=== PATIENT | male | born 1955 | race Caucasian/White ===

== ENCOUNTER 2018-02-06 16:28 | Inpatient (IN) ==
[2018-02-06] MEDS ORDERED: IBUPROFEN 800 MG TABLET PO STA (16:54)
[2018-02-06] MEDS ORDERED: cefTRIAXone 1,000 MG in SODIUM CHLORIDE 0.9% 100 ML IV STA (19:09)
[2018-02-06] MEDS ORDERED: CEFEPIME 2,000 MG in SODIUM CHLORIDE 0.9% 100 ML IV STA ×2 (19:15→19:24)
[2018-02-06] MEDS ORDERED: VANCOMYCIN INJ 1,000 MG in SODIUM CHLORIDE 0.9% 250 ML IV STA (19:16)
[2018-02-06 19:21] LABS: Basophils % 0.4 % (0.0-0.8); Eosinophils % 0.2 % (0.00-10.9); Hematocrit 39.1 VOL% (42.0-52.0); Hemoglobin 12.9 GM/DL (14.0-18.0); Immature Granulocytes % 0.9 %; Immature Granulocytes Absolute 0.08 #; Lymphocytes # 0.8 10*3/uL (1.4-4.0); Lymphocytes % 8.8 % (21.2-54.2); Mean Corpuscular Hemoglobin 31 PG (27-34); Mean Corpuscular Volume 92.9 FL (87-102); Mean Platelet Volume 11.4 FL (9.6-12.0); Monocytes # 1.2 10*3/uL (0.11-0.8); Monocytes % 13.3 % (1.7-12.7); Neutrophils % 76.4 % (38.7-73.9); Platelet Count 139 T/CUMM (130-400); Red Blood Count 4.21 MC/CUMM (3.8-5.5); Red Cell Distribution Width 13.4 % (9.3-17.3); White Blood Count 9.2 T/CUMM (4-12)
[2018-02-06] MEDS ORDERED: CEFEPIME 2,000 MG in SODIUM CHLORIDE 0.9% 100 ML IV ONE (19:30)
[2018-02-06] MEDS ORDERED: CEFEPIME 1,000 MG VIAL ONE (19:30)
[2018-02-06 19:39] LABS: Albumin 3.2 G/DL (3.4-5.0); Bilirubin,Total 0.9 MG/DL (0.2-1.0); Calcium 7.9 MG/DL (8.5-10.1); Osmolality,Calculated 283.3 MOS/KG (273-304); Potassium 3.5 MMOL/L (3.5-5.1); Total Protein 6.5 G/DL (6.4-8.3)
[2018-02-06] MEDS ORDERED: ONDANSETRON 4 MG/2 ML VIAL IV PRN (20:02)
[2018-02-06] MEDS ORDERED: DEXTROSE 50% 25 GM/50 ML VIAL IV PRN ×2 (20:02)
[2018-02-06] MEDS ORDERED: GLUCAGON 1 MG VIAL IM PRN ×2 (20:02)
[2018-02-06] MEDS ORDERED: AZITHROMYCIN INJ 500 MG in SODIUM CHLORIDE 0.9% 250 ML IV SCH (20:30)
[2018-02-06] MEDS ORDERED: TERAZOSIN 5 MG CAPSULE PO SCH (21:00)
[2018-02-06] MEDS ORDERED: METOPROLOL SUCCINATE XL 100 MG TABLET PO SCH (21:00)
[2018-02-07] MEDS: INSULIN REGULAR 100 UNIT/ML SUBCUT SCH ×5 (00:26→21:17)
[2018-02-07] MEDS: AZITHROMYCIN INJ 500 MG in SODIUM CHLORIDE 0.9% 250 ML IV SCH ×2 (00:39→23:29)
[2018-02-07] MEDS: ENOXAPARIN 40 MG/0.4 ML SYRINGE SUBCUT SCH ×2 (00:39→23:29)
[2018-02-07] MEDS: ALBUTEROL/IPRATROPIUM 3 ML NEB RESP TX SCH ×4 (01:43→19:24)
[2018-02-07] MEDS ORDERED: hydrALAZINE 20 MG/1 ML VIAL IV PRN (03:55)
[2018-02-07 08:50] LABS: Basophils % 0.3 % (0.0-0.8); Eosinophils % 0.1 % (0.00-10.9); Hematocrit 38.1 VOL% (42.0-52.0); Hemoglobin 12.9 GM/DL (14.0-18.0); Immature Granulocytes % 1.1 %; Immature Granulocytes Absolute 0.11 #; Lymphocytes # 0.9 10*3/uL (1.4-4.0); Lymphocytes % 9.3 % (21.2-54.2); Mean Corpuscular HGB Conc 33.9 GM/DL (32-36); Mean Corpuscular Hemoglobin 31 PG (27-34); Mean Corpuscular Volume 91.4 FL (87-102); Mean Platelet Volume 10.9 FL (9.6-12.0); Monocytes # 1.4 10*3/uL (0.11-0.8); Monocytes % 13.9 % (1.7-12.7); Neutrophils # 7.4 10*3/uL (1.4-7.4); Neutrophils % 75.3 % (38.7-73.9); Platelet Count 145 T/CUMM (130-400); Red Blood Count 4.17 MC/CUMM (3.8-5.5); Red Cell Distribution Width 13.6 % (9.3-17.3); White Blood Count 9.9 T/CUMM (4-12)
[2018-02-07] MEDS ORDERED: NON-FORMULARY MEDICATION (Potassium [Potassium] 99 MG) PO SCH (09:00)
[2018-02-07] MEDS ORDERED: FOLIC ACID PO SCH (09:00)
[2018-02-07] MEDS ORDERED: NON-FORMULARY MEDICATION (Olmesartan Medoxomil [Benicar] 40 MG) PO SCH (09:00)
[2018-02-07] MEDS ORDERED: MV IRON MIN PO SCH (09:00)
[2018-02-07] MEDS ORDERED: NON-FORMULARY MEDICATION (Cyanocobalamin (Vitamin B-12) [Vitamin B-12] 1,000 MCG) PO SCH (09:00)
[2018-02-07] MEDS ORDERED: ASPIRIN EC 81 MG TABLET PO SCH (09:00)
[2018-02-07] MEDS: MULTIVITAMIN (CENTRUM) TABLET PO SCH (09:10)
[2018-02-07] MEDS: OLMESARTAN 20 MG TABLET PO SCH (09:11)
[2018-02-07] MEDS: POTASSIUM GLUCONATE 500 MG TABLET PO SCH (09:11)
[2018-02-07] MEDS: ASPIRIN EC 81 MG TABLET PO SCH (09:11)
[2018-02-07] MEDS: ACETAMINOPHEN 325 MG TABLET PO PRN (09:12)
[2018-02-07] MEDS: CYANOCOBALAMIN 500 MCG TABLET PO SCH (09:13)
[2018-02-07] MEDS: amLODIPine 5 MG TABLET PO SCH (09:13)
[2018-02-07] MEDS: PANTOPRAZOLE 40 MG TABLET PO SCH (09:14)
[2018-02-07] MEDS: FUROSEMIDE 80 MG TABLET PO SCH (09:15)
[2018-02-07 09:20] LABS: Calcium 8.3 MG/DL (8.5-10.1); Potassium 3.6 MMOL/L (3.5-5.1)
[2018-02-07] MEDS: METOPROLOL SUCCINATE XL 100 MG TABLET PO SCH ×2 (09:26→21:18)
[2018-02-07] MEDS: cefTRIAXone 1,000 MG in SYRINGE 1 EACH IV SCH (21:17)
[2018-02-07] MEDS: TERAZOSIN 5 MG CAPSULE PO SCH (21:18)
[2018-02-08] MEDS: ALBUTEROL/IPRATROPIUM 3 ML NEB RESP TX SCH ×4 (00:07→19:52)
[2018-02-08] MEDS: ACETAMINOPHEN 325 MG TABLET PO PRN (05:59)
[2018-02-08] MEDS: INSULIN REGULAR 100 UNIT/ML SUBCUT SCH ×4 (09:35→21:10)
[2018-02-08] MEDS: METOPROLOL SUCCINATE XL 100 MG TABLET PO SCH ×2 (09:37→21:10)
[2018-02-08] MEDS: AZITHROMYCIN 250 MG TABLET PO SCH (09:37)
[2018-02-08] MEDS: POTASSIUM GLUCONATE 500 MG TABLET PO SCH (09:38)
[2018-02-08] MEDS: amLODIPine 5 MG TABLET PO SCH (09:38)
[2018-02-08] MEDS: FUROSEMIDE 80 MG TABLET PO SCH (09:38)
[2018-02-08] MEDS: PANTOPRAZOLE 40 MG TABLET PO SCH (09:38)
[2018-02-08] MEDS: OLMESARTAN 20 MG TABLET PO SCH (09:38)
[2018-02-08] MEDS: CYANOCOBALAMIN 500 MCG TABLET PO SCH (09:38)
[2018-02-08] MEDS: MULTIVITAMIN (CENTRUM) TABLET PO SCH (09:38)
[2018-02-08] MEDS: ASPIRIN EC 81 MG TABLET PO SCH (09:38)
[2018-02-08] MEDS: ENOXAPARIN 40 MG/0.4 ML SYRINGE SUBCUT SCH (21:10)
[2018-02-08] MEDS: TERAZOSIN 5 MG CAPSULE PO SCH (21:10)
[2018-02-08] MEDS: cefTRIAXone 1,000 MG in SYRINGE 1 EACH IV SCH (21:11)
[2018-02-09] MEDS: ALBUTEROL/IPRATROPIUM 3 ML NEB RESP TX SCH ×4 (00:33→19:17)
[2018-02-09] MEDS: ACETAMINOPHEN 325 MG TABLET PO PRN ×2 (06:45→21:58)
[2018-02-09] MEDS: INSULIN REGULAR 100 UNIT/ML SUBCUT SCH ×4 (09:16→21:59)
[2018-02-09] MEDS: CYANOCOBALAMIN 500 MCG TABLET PO SCH (09:19)
[2018-02-09] MEDS: amLODIPine 5 MG TABLET PO SCH (09:19)
[2018-02-09] MEDS: OLMESARTAN 20 MG TABLET PO SCH (09:19)
[2018-02-09] MEDS: MULTIVITAMIN (CENTRUM) TABLET PO SCH (09:19)
[2018-02-09] MEDS: FUROSEMIDE 80 MG TABLET PO SCH (09:19)
[2018-02-09] MEDS: AZITHROMYCIN 250 MG TABLET PO SCH (09:19)
[2018-02-09] MEDS: POTASSIUM GLUCONATE 500 MG TABLET PO SCH (09:19)
[2018-02-09] MEDS: METOPROLOL SUCCINATE XL 100 MG TABLET PO SCH ×2 (09:19→21:58)
[2018-02-09] MEDS: ASPIRIN EC 81 MG TABLET PO SCH (09:19)
[2018-02-09] MEDS: PANTOPRAZOLE 40 MG TABLET PO SCH (09:19)
[2018-02-09] MEDS ORDERED: SODIUM CHLORIDE 0.65% NASAL SPRAY 45 ML BOTTLE BOTH NARES PRN (11:04)
[2018-02-09] MEDS: TERAZOSIN 5 MG CAPSULE PO SCH (21:58)
[2018-02-09] MEDS: cefTRIAXone 1,000 MG in SYRINGE 1 EACH IV SCH (21:59)
[2018-02-09] MEDS: ENOXAPARIN 40 MG/0.4 ML SYRINGE SUBCUT SCH (23:43)
[2018-02-10] MEDS: ALBUTEROL/IPRATROPIUM 3 ML NEB RESP TX SCH ×2 (00:24→07:33)
[2018-02-10 05:55] LABS: Basophils # 0.1 10*3/uL (0.0-0.2); Eosinophils # 0.2 10*3/uL (0.0-0.87); Eosinophils % 3.1 % (0.00-10.9); Hematocrit 39.5 VOL% (42.0-52.0); Hemoglobin 13.1 GM/DL (14.0-18.0); Lymphocytes # 1.2 10*3/uL (1.4-4.0); Lymphocytes % 17.8 % (21.2-54.2); Mean Corpuscular HGB Conc 33.2 GM/DL (32-36); Mean Corpuscular Hemoglobin 31 PG (27-34); Mean Corpuscular Volume 92.5 FL (87-102); Mean Platelet Volume 11.4 FL (9.6-12.0); Monocytes # 0.7 10*3/uL (0.11-0.8); Monocytes % 10.5 % (1.7-12.7); Neutrophils # 4.1 10*3/uL (1.4-7.4); Neutrophils % 61.6 % (38.7-73.9); Platelet Count 198 T/CUMM (130-400); Red Blood Count 4.27 MC/CUMM (3.8-5.5); White Blood Count 6.7 T/CUMM (4-12)
[2018-02-10 06:18] LABS: Band Neutrophils 5 % (0-10); Eosinophils 3 % (0-10); Lymphocytes 23 % (20-55); Platelet Estimate Normal; Segmented Neutrophils 59 % (50-85); Total Cells Counted 100
[2018-02-10 06:19] LABS: Anisocytosis Slight
[2018-02-10 06:26] LABS: Calcium 9.1 MG/DL (8.5-10.1); Osmolality,Calculated 285.4 MOS/KG (273-304)
[2018-02-10] MEDS: POTASSIUM GLUCONATE 500 MG TABLET PO SCH (08:46)
[2018-02-10] MEDS: PANTOPRAZOLE 40 MG TABLET PO SCH (08:46)
[2018-02-10] MEDS: MULTIVITAMIN (CENTRUM) TABLET PO SCH (08:46)
[2018-02-10] MEDS: ASPIRIN EC 81 MG TABLET PO SCH (08:46)
[2018-02-10] MEDS: amLODIPine 5 MG TABLET PO SCH (08:46)
[2018-02-10] MEDS: FUROSEMIDE 80 MG TABLET PO SCH (08:46)
[2018-02-10] MEDS: CYANOCOBALAMIN 500 MCG TABLET PO SCH (08:46)
[2018-02-10] MEDS: OLMESARTAN 20 MG TABLET PO SCH (08:46)
[2018-02-10] MEDS: METOPROLOL SUCCINATE XL 100 MG TABLET PO SCH (08:46)
[2018-02-10] MEDS: AZITHROMYCIN 250 MG TABLET PO SCH (08:47)
[2018-02-10] MEDS: INSULIN REGULAR 100 UNIT/ML SUBCUT SCH (08:50)
[2018-02-10 12:09] VITALS: BP 156/84
== END 2018-02-10 12:10 | disposition home or self-care (01) | DRG 195 ==
LOC: N.ED 16:28 → N.EDINP 20:02 → SUATTDRO 20:03 → N.EDINP 21:30 → N.5E 21:53 → N.ED 22:16
PROVIDERS: ADMIT Internal Medicine; ATTEND Internal Medicine

== ENCOUNTER 2019-01-06 14:53 | Inpatient (IN) ==
[2019-01-06] MEDS ORDERED: ONDANSETRON 4 MG/2 ML VIAL IV STA (15:17)
[2019-01-06] MEDS ORDERED: ASPIRIN 325 MG TABLET PO STA (15:17)
[2019-01-06 15:50] LABS: Basophils % 0.5 % (0.0-0.8); Eosinophils # 0.1 10*3/uL (0.0-0.87); Eosinophils % 1.1 % (0.00-10.9); Hematocrit 43.1 VOL% (42.0-52.0); Hemoglobin 14.2 GM/DL (14.0-18.0); Immature Granulocytes % 1.1 %; Immature Granulocytes Absolute 0.09 #; Lymphocytes # 2.2 10*3/uL (1.4-4.0); Lymphocytes % 27.5 % (21.2-54.2); Mean Corpuscular HGB Conc 32.9 GM/DL (32-36); Mean Corpuscular Volume 93.5 FL (87-102); Mean Platelet Volume 12.5 FL (9.6-12.0); Monocytes % 12.1 % (1.7-12.7); Neutrophils % 57.7 % (38.7-73.9); Platelet Count 142 T/CUMM (130-400); Red Blood Count 4.61 MC/CUMM (3.8-5.5); Red Cell Distribution Width 13.8 % (9.3-17.3); White Blood Count 8.2 T/CUMM (4-12)
[2019-01-06 15:58] LABS: PT Patient Result 10.7 SECS
[2019-01-06] MEDS ORDERED: PROMETHAZINE 25 MG TABLET PO PRN (16:17)
[2019-01-06] MEDS ORDERED: ACETAMINOPHEN 325 MG TABLET PO PRN (16:17)
[2019-01-06] MEDS ORDERED: LACTULOSE 20 GM/30 ML UDCUP PO PRN (16:17)
[2019-01-06] MEDS ORDERED: MAGNESIUM SULF RIDER 2 GM in PREMIX 1 EACH IV PRN (16:17)
[2019-01-06] MEDS ORDERED: guaiFENesin/DM ER 600-30 MG TABLET PO PRN (16:17)
[2019-01-06] MEDS ORDERED: POTASSIUM CHLORIDE 20 MEQ TABLET PO PRN (16:17)
[2019-01-06] MEDS ORDERED: MAGNESIUM SULF RIDER 4 GM in PREMIX 1 EACH IV PRN (16:17)
[2019-01-06] MEDS ORDERED: ZALEPLON 5 MG CAPSULE PO PRN (16:17)
[2019-01-06] MEDS ORDERED: DOCUSATE SODIUM 100 MG CAPSULE PO PRN (16:17)
[2019-01-06] MEDS ORDERED: ONDANSETRON 4 MG/2 ML VIAL IV PRN (16:17)
[2019-01-06] MEDS ORDERED: AMIODARONE INJ 450 MG in DEXTROSE 5% 241 ML IV SCH (16:30)
[2019-01-06 16:50] LABS: Albumin 3.7 G/DL (3.4-5.0); Bilirubin,Total 0.5 MG/DL (0.2-1.0); Calcium 8.4 MG/DL (8.5-10.1); Osmolality,Calculated 290.4 MOS/KG (273-304); Thyroid Stimulating Hormone 5.35 uIU/ml (0.358-3.74); Total Protein 6.9 G/DL (6.4-8.3)
[2019-01-06] MEDS ORDERED: RIVAROXABAN 20 MG TABLET PO SCH (17:00)
[2019-01-06] MEDS ORDERED: sitaGLIPtin 100 MG TABLET PO SCH (21:00)
[2019-01-06] MEDS ORDERED: PIOGLITAZONE 15 MG TABLET PO SCH (21:00)
[2019-01-06] MEDS: GEMFIBROZIL 600 MG TABLET PO SCH (22:27)
[2019-01-06] MEDS: glyBURIDE 5 MG TABLET PO SCH (22:27)
[2019-01-06] MEDS: METOPROLOL SUCCINATE XL 100 MG TABLET PO SCH (22:28)
[2019-01-06] MEDS: AMIODARONE INJ 450 MG in DEXTROSE 5% 241 ML IV SCH (22:29)
[2019-01-06 22:48] LABS: Apearance,Urine CLEAR (Clear); Bilirubin,Urine Negative (Negative); Blood, Urine Small mg/dL (Negative); Glucose,Urine (UA) Negative (Negative); Hyaline Casts,Urine 1 /LPF (0-3); Ketones,Urine Negative (Negative); Mucus,Urine Occasional /LPF (Occasional); Nitrite,Urine Negative (Negative); Protein,Urine Negative; RBC,Urine 1 /HPF (0-4); Urine Color Yellow (Yellow); Urine Specific Gravity 1.015 (1.001-1.035); Urine Urobilinogen < 2.0 EU/DL (0.2-1.0)
[2019-01-06] MEDS: INSULIN LISPRO 100 UNIT/ML SUBCUT SCH (22:55)
[2019-01-07] MEDS: AMIODARONE INJ 450 MG in DEXTROSE 5% 241 ML IV SCH (01:23)
[2019-01-07 06:00] LABS: Basophils % 0.6 % (0.0-0.8); Eosinophils # 0.1 10*3/uL (0.0-0.87); Eosinophils % 1.7 % (0.00-10.9); Hematocrit 44.6 VOL% (42.0-52.0); Hemoglobin 14.5 GM/DL (14.0-18.0); Immature Granulocytes Absolute 0.14 #; Lymphocytes # 1.8 10*3/uL (1.4-4.0); Lymphocytes % 24.5 % (21.2-54.2); Mean Corpuscular HGB Conc 32.5 GM/DL (32-36); Mean Corpuscular Volume 94.7 FL (87-102); Mean Platelet Volume 12.1 FL (9.6-12.0); Monocytes % 13.7 % (1.7-12.7); Neutrophils % 57.5 % (38.7-73.9); Platelet Count 133 T/CUMM (130-400); Red Blood Count 4.71 MC/CUMM (3.8-5.5); Red Cell Distribution Width 13.8 % (9.3-17.3); White Blood Count 7.1 T/CUMM (4-12)
[2019-01-07 06:20] LABS: Blood Urea Nitrogen 39 MG/DL (7-18); Calcium 8.9 MG/DL (8.5-10.1); Glucose 134 MG/DL (74-106); Osmolality,Calculated 289.4 MOS/KG (273-304)
[2019-01-07 06:25] LABS: Troponin I 0.075 NG/ML (0.00-0.045)
[2019-01-07] MEDS: INSULIN LISPRO 100 UNIT/ML SUBCUT SCH ×2 (08:34→11:14)
[2019-01-07] MEDS ORDERED: FAMOTIDINE 20 MG/2 ML VIAL IV ONE (08:47)
[2019-01-07] MEDS ORDERED: CITRIC ACID/SODIUM CITRATE 30 ML UDCUP PO ONE (08:47)
[2019-01-07] MEDS ORDERED: FUROSEMIDE 40 MG TABLET PO SCH (09:00)
[2019-01-07] MEDS ORDERED: CYANOCOBALAMIN 500 MCG TABLET PO SCH (09:00)
[2019-01-07] MEDS ORDERED: hydroCHLOROthiazide 25 MG TABLET PO SCH (09:00)
[2019-01-07] MEDS ORDERED: ASPIRIN EC 81 MG TABLET PO SCH (09:00)
[2019-01-07] MEDS ORDERED: OLMESARTAN 20 MG TABLET PO SCH (09:00)
[2019-01-07] MEDS ORDERED: TERAZOSIN 10 MG CAPSULE PO SCH (09:00)
[2019-01-07] MEDS ORDERED: POTASSIUM CHLORIDE 10 MEQ TABLET PO SCH (09:00)
[2019-01-07] MEDS ORDERED: PANTOPRAZOLE 40 MG TABLET PO SCH (09:00)
[2019-01-07] MEDS ORDERED: FINASTERIDE 5 MG TABLET PO SCH (09:00)
[2019-01-07] MEDS ORDERED: SODIUM CHLORIDE 0.9% 1,000 ML IV SCH (09:30)
[2019-01-07] MEDS ORDERED: LIDOCAINE 2% 5 ML VIAL ONE (09:58)
[2019-01-07] MEDS ORDERED: PROPOFOL 200 MG/20 ML VIAL IV ONE (09:58)
[2019-01-07 11:31] VITALS: BP 120/73
[2019-01-07] MEDS: METOPROLOL SUCCINATE XL 100 MG TABLET PO SCH (12:06)
[2019-01-07] MEDS: GEMFIBROZIL 600 MG TABLET PO SCH (12:22)
[2019-01-07] MEDS: glyBURIDE 5 MG TABLET PO SCH (12:22)
== END 2019-01-07 15:11 | disposition home or self-care (01) ==
LOC: N.ED 14:53 → N.EDINP 16:17 → N.TELEN 17:06
PROVIDERS: ADMIT Internal Medicine Cardiovascular Disease; ATTEND Internal Medicine Cardiovascular Disease

== ENCOUNTER 2019-04-11 20:19 | Observation (INO) ==
[2019-04-11] MEDS ORDERED: METOPROLOL TARTRATE 5 MG/5 ML VIAL IV STA (21:42)
[2019-04-11 21:52] LABS: Basophils # 0.1 10*3/uL (0.0-0.2); Eosinophils # 0.1 10*3/uL (0.0-0.87); Eosinophils % 1.6 % (0.00-10.9); Hematocrit 44.5 VOL% (42.0-52.0); Hemoglobin 14.4 GM/DL (14.0-18.0); Immature Granulocytes % 1.2 %; Immature Granulocytes Absolute 0.08 #; Lymphocytes # 1.5 10*3/uL (1.4-4.0); Lymphocytes % 22.2 % (21.2-54.2); Mean Corpuscular HGB Conc 32.4 GM/DL (32-36); Mean Corpuscular Volume 94.7 FL (87-102); Mean Platelet Volume 12.1 FL (9.6-12.0); Monocytes % 9.9 % (1.7-12.7); Neutrophils % 64.1 % (38.7-73.9); Platelet Count 140 T/CUMM (130-400); Red Cell Distribution Width 13.5 % (9.3-17.3); White Blood Count 6.7 T/CUMM (4-12)
[2019-04-11] MEDS ORDERED: ALBUTEROL/IPRATROPIUM 3 ML NEB RESP TX STA (21:59)
[2019-04-11] MEDS ORDERED: FUROSEMIDE 40 MG/4 ML VIAL IV STA (21:59)
[2019-04-11 22:09] LABS: INR 1.2; PT Patient Result 12.6 SECS (9.6-12.2); Partial Thromboplastin Time 35.4 SECS (20.8-36.0)
[2019-04-11 22:14] LABS: Alanine Aminotransferase 34 U/L (16-61); Albumin 4.1 G/DL (3.4-5.0); Alkaline Phosphatase 76 U/L (45-117); Aspartate Amino Transferase 17 U/L (0-37); Bilirubin,Total < 0.39 MG/DL (0.2-1.0); Blood Urea Nitrogen 37 MG/DL (7-18); Calcium 8.7 MG/DL (8.5-10.1); Estimated Glom Filtration Rate 67 ML/MIN; Glucose 212 MG/DL (74-106); Osmolality,Calculated 293.4 MOS/KG (273-304); Total Protein 7.3 G/DL (6.4-8.3); Troponin I < 0.015 NG/ML (0.00-0.045)
[2019-04-11 22:18] LABS: Apearance,Urine CLEAR (Clear); Bilirubin,Urine Negative (Negative); Blood, Urine Small mg/dL (Negative); Glucose,Urine (UA) 150 mg/dL (Negative); Ketones,Urine Negative (Negative); Nitrite,Urine Negative (Negative); Protein,Urine Negative; RBC,Urine 1 /HPF (0-4); Urine Color Yellow (Yellow); Urine Specific Gravity 1.019 (1.001-1.035); Urine Urobilinogen < 2.0 EU/DL (0.2-1.0); WBC,Urine <1 /HPF (0-6)
[2019-04-11 22:37] LABS: Barbiturates Screen,Urine Negative (Negative); Benzodiazepines Screen,Urine Negative (Negative); Cannabinoid Screen,Urine Negative (Negative); Opiate Screen,Urine Negative (Negative); Phencyclidine Screen,Urine Negative (Negative)
[2019-04-12] MEDS ORDERED: ACETAMINOPHEN 325 MG TABLET PO PRN (01:53)
[2019-04-12] MEDS ORDERED: DEXTROSE 50% 25 GM/50 ML VIAL IV PRN (01:53)
[2019-04-12] MEDS ORDERED: ONDANSETRON 4 MG/2 ML VIAL IV PRN (01:53)
[2019-04-12] MEDS ORDERED: GLUCAGON 1 MG VIAL IM PRN (01:53)
[2019-04-12 05:15] LABS: Basophils # 0.1 10*3/uL (0.0-0.2); Basophils % 1.1 % (0.0-0.8); Eosinophils # 0.1 10*3/uL (0.0-0.87); Eosinophils % 1.6 % (0.00-10.9); Hematocrit 47.3 VOL% (42.0-52.0); Hemoglobin 15.1 GM/DL (14.0-18.0); Immature Granulocytes % 1.1 %; Immature Granulocytes Absolute 0.07 #; Lymphocytes # 1.8 10*3/uL (1.4-4.0); Lymphocytes % 27.7 % (21.2-54.2); Mean Corpuscular HGB Conc 31.9 GM/DL (32-36); Mean Corpuscular Volume 95.2 FL (87-102); Mean Platelet Volume 12.6 FL (9.6-12.0); Monocytes % 10.5 % (1.7-12.7); Platelet Count 147 T/CUMM (130-400); Red Blood Count 4.97 MC/CUMM (3.8-5.5); Red Cell Distribution Width 13.7 % (9.3-17.3); White Blood Count 6.4 T/CUMM (4-12)
[2019-04-12] MEDS: INSULIN LISPRO 100 UNIT/ML SUBCUT SCH ×2 (05:51→13:01)
[2019-04-12 05:52] LABS: Calcium 8.9 MG/DL (8.5-10.1); Osmolality,Calculated 288.1 MOS/KG (273-304)
[2019-04-12 06:44] LABS: Risk Ratio 5.79; Thyroid Stimulating Hormone 11.6 uIU/ml (0.358-3.74); VLDL CHOLESTEROL 58.6 MG/DL
[2019-04-12] MEDS ORDERED: OLMESARTAN 20 MG TABLET PO SCH (09:00)
[2019-04-12] MEDS ORDERED: AMIODARONE 200 MG TABLET PO SCH (09:00)
[2019-04-12] MEDS ORDERED: INFLUENZA VIRUS VACCINE 0.5 ML SYRINGE IM ONE (09:00)
[2019-04-12] MEDS ORDERED: PANTOPRAZOLE 40 MG TABLET PO SCH (09:00)
[2019-04-12] MEDS ORDERED: METOPROLOL SUCCINATE XL 100 MG TABLET PO SCH (09:00)
[2019-04-12] MEDS ORDERED: PNEUMOCOCCAL VACCINE (23 VALENT) 0.5 ML VIAL IM ONE (09:00)
[2019-04-12] MEDS ORDERED: POTASSIUM CHLORIDE 20 MEQ TABLET PO ONE (09:48)
[2019-04-12] MEDS ORDERED: POTASSIUM CHLORIDE 20 MEQ TABLET PO SCH (10:00)
[2019-04-12 12:22] VITALS: BP 149/87
[2019-04-12] MEDS ORDERED: RIVAROXABAN 20 MG TABLET PO SCH (17:00)
== END 2019-04-12 12:24 | disposition home or self-care (01) ==
LOC: N.EDINP 20:19 → N.ED 20:19 → SUATTDRO 04-12 01:03 → N.TELES 04-12 01:24
PROVIDERS: ADMIT Emergency Medicine; ATTEND Internal Medicine Cardiovascular Disease

== ENCOUNTER 2019-04-14 02:02 | Inpatient (IN) ==
[2019-04-14] MEDS ORDERED: DILTIAZEM 50 MG/10 ML VIAL IV STA (02:32)
[2019-04-14] MEDS ORDERED: DILTIAZEM 25 MG/5 ML VIAL IV ONE (02:44)
[2019-04-14 02:57] LABS: Basophils # 0.1 10*3/uL (0.0-0.2); Basophils % 0.9 % (0.0-0.8); Eosinophils # 0.1 10*3/uL (0.0-0.87); Eosinophils % 1.3 % (0.00-10.9); Hematocrit 46.4 VOL% (42.0-52.0); Hemoglobin 14.8 GM/DL (14.0-18.0); Immature Granulocytes % 0.9 %; Immature Granulocytes Absolute 0.06 #; Lymphocytes # 1.5 10*3/uL (1.4-4.0); Lymphocytes % 24.3 % (21.2-54.2); Mean Corpuscular HGB Conc 31.9 GM/DL (32-36); Mean Corpuscular Volume 95.9 FL (87-102); Mean Platelet Volume 12.2 FL (9.6-12.0); Monocytes % 11.8 % (1.7-12.7); Neutrophils % 60.8 % (38.7-73.9); Platelet Count 131 T/CUMM (130-400); Red Blood Count 4.84 MC/CUMM (3.8-5.5); Red Cell Distribution Width 13.8 % (9.3-17.3); White Blood Count 6.3 T/CUMM (4-12)
[2019-04-14 03:02] LABS: INR 1.2; PT Patient Result 13.4 SECS (9.6-12.2)
[2019-04-14 03:12] LABS: Bilirubin,Total 0.4 MG/DL (0.2-1.0); Osmolality,Calculated 291.1 MOS/KG (273-304); Total Protein 7.4 G/DL (6.4-8.3)
[2019-04-14] MEDS ORDERED: GLUCAGON 1 MG VIAL IM PRN (07:24)
[2019-04-14] MEDS ORDERED: ACETAMINOPHEN 325 MG TABLET PO PRN (07:24)
[2019-04-14] MEDS ORDERED: ONDANSETRON 4 MG/2 ML VIAL IV PRN (07:24)
[2019-04-14] MEDS ORDERED: DOCUSATE SODIUM 100 MG CAPSULE PO PRN (07:24)
[2019-04-14] MEDS ORDERED: NITROGLYCERIN SL 0.4 MG TABLET SL PRN (07:24)
[2019-04-14 08:11] LABS: Thyroid Stimulating Hormone 12.6 uIU/ml (0.358-3.74)
[2019-04-14] MEDS: INSULIN LISPRO 100 UNIT/ML SUBCUT SCH ×4 (10:29→22:26)
[2019-04-14] MEDS ORDERED: ENOXAPARIN 60 MG/0.6 ML SYRINGE ONE ×4 (11:34→16:28)
[2019-04-14] MEDS ORDERED: ENOXAPARIN 30 MG/0.3 ML SYRINGE ONE (11:41)
[2019-04-14] MEDS: ENOXAPARIN 150 MG/ML SYRINGE SUBCUT SCH (12:06)
[2019-04-14] MEDS ORDERED: ASPIRIN 325 MG TABLET PO ONE (12:33)
[2019-04-14] MEDS ORDERED: DEXTROSE 50% 25 GM/50 ML VIAL IV ONE (12:41)
[2019-04-14] MEDS ORDERED: DEXTROSE 50% 25 GM/50 ML VIAL IV PRN ×2 (12:44→13:08)
[2019-04-14] MEDS ORDERED: PROPOFOL 200 MG/20 ML VIAL IV ONE (12:46)
[2019-04-14] MEDS ORDERED: LIDOCAINE 2% 5 ML VIAL ONE (12:47)
[2019-04-14] MEDS: DEXTROSE 50% 25 GM/50 ML VIAL IV PRN (12:52)
[2019-04-14] MEDS ORDERED: ASPIRIN 325 MG TABLET ONE (12:58)
[2019-04-14] MEDS ORDERED: SODIUM CHLORIDE 0.9% 1,000 ML IV SCH (13:00)
[2019-04-14] MEDS ORDERED: MAGNESIUM SULF RIDER 2 GM in PREMIX 1 EACH IV PRN (13:15)
[2019-04-14] MEDS ORDERED: PIOGLITAZONE 15 MG TABLET PO SCH (21:00)
[2019-04-14] MEDS: ASCORBIC ACID 500 MG TABLET PO SCH (22:18)
[2019-04-14] MEDS: glyBURIDE 5 MG TABLET PO SCH (22:18)
[2019-04-14] MEDS: METOPROLOL SUCCINATE XL 100 MG TABLET PO SCH (22:19)
[2019-04-14] MEDS: GEMFIBROZIL 600 MG TABLET PO SCH (22:19)
[2019-04-14] MEDS: sitaGLIPtin 100 MG TABLET PO SCH (22:19)
[2019-04-15] MEDS: ENOXAPARIN 150 MG/ML SYRINGE SUBCUT SCH (00:23)
[2019-04-15 04:25] LABS: Basophils # 0.1 10*3/uL (0.0-0.2); Basophils % 0.9 % (0.0-0.8); Eosinophils # 0.1 10*3/uL (0.0-0.87); Eosinophils % 1.5 % (0.00-10.9); Hematocrit 39.6 VOL% (42.0-52.0); Immature Granulocytes % 0.9 %; Immature Granulocytes Absolute 0.06 #; Lymphocytes # 1.8 10*3/uL (1.4-4.0); Lymphocytes % 26.8 % (21.2-54.2); Mean Corpuscular HGB Conc 31.3 GM/DL (32-36); Mean Corpuscular Volume 96.8 FL (87-102); Mean Platelet Volume 12.7 FL (9.6-12.0); Monocytes % 12.9 % (1.7-12.7); Platelet Count 112 T/CUMM (130-400); Red Blood Count 4.09 MC/CUMM (3.8-5.5); Red Cell Distribution Width 13.9 % (9.3-17.3); White Blood Count 6.7 T/CUMM (4-12)
[2019-04-15 04:29] LABS: Hemoglobin 12.4 GM/DL (14.0-18.0)
[2019-04-15 04:33] LABS: Calcium 8.6 MG/DL (8.5-10.1); Osmolality,Calculated 287.4 MOS/KG (273-304)
[2019-04-15 05:24] LABS: Free T4 (Free Thyroxine) 1.09 NG/DL (0.76-1.46)
[2019-04-15] MEDS ORDERED: diphenhydrAMINE CAP 25 MG CAPSULE PO ONE (06:00)
[2019-04-15] MEDS ORDERED: DIAZEPAM 5 MG TABLET PO ONE (06:00)
[2019-04-15] MEDS: LEVOTHYROXINE 100 MCG TABLET PO SCH (06:12)
[2019-04-15] MEDS: CYANOCOBALAMIN 500 MCG TABLET PO SCH (09:15)
[2019-04-15] MEDS: FINASTERIDE 5 MG TABLET PO SCH (09:15)
[2019-04-15] MEDS: TERAZOSIN 10 MG CAPSULE PO SCH (09:15)
[2019-04-15] MEDS: SPIRONOLACTONE 25 MG TABLET PO SCH (09:15)
[2019-04-15] MEDS: OLMESARTAN 20 MG TABLET PO SCH (09:15)
[2019-04-15] MEDS: ASCORBIC ACID 500 MG TABLET PO SCH ×2 (09:15→20:24)
[2019-04-15] MEDS: ASPIRIN CHEW 81 MG TABLET PO SCH (09:15)
[2019-04-15] MEDS: PANTOPRAZOLE 40 MG TABLET PO SCH (09:15)
[2019-04-15] MEDS: GEMFIBROZIL 600 MG TABLET PO SCH ×2 (09:15→20:24)
[2019-04-15] MEDS: FUROSEMIDE 40 MG TABLET PO SCH (09:15)
[2019-04-15] MEDS: POTASSIUM CHLORIDE 20 MEQ TABLET PO SCH (09:15)
[2019-04-15] MEDS: METOPROLOL SUCCINATE XL 100 MG TABLET PO SCH (09:15)
[2019-04-15] MEDS: glyBURIDE 5 MG TABLET PO SCH ×2 (09:16→20:25)
[2019-04-15] MEDS: INSULIN LISPRO 100 UNIT/ML SUBCUT SCH ×4 (09:16→20:25)
[2019-04-15] MEDS ORDERED: DEXTROSE 50% 25 GM/50 ML VIAL IV ONE (13:32)
[2019-04-15] MEDS: DEXTROSE 50% 25 GM/50 ML VIAL IV PRN (13:37)
[2019-04-15] MEDS ORDERED: HEPARIN/NACL 0.9% 2 UNITS/ML 1,000 ML IV ONE (14:12)
[2019-04-15] MEDS ORDERED: LIDOCAINE 1% 20 ML VIAL ONE (14:12)
[2019-04-15] MEDS ORDERED: DIAZEPAM 5 MG TABLET ONE (15:16)
[2019-04-15] MEDS ORDERED: diphenhydrAMINE CAP 25 MG CAPSULE ONE (15:16)
[2019-04-15] MEDS ORDERED: MIDAZOLAM 2 MG/2 ML VIAL ONE ×3 (16:28→16:54)
[2019-04-15] MEDS ORDERED: fentaNYL 100 MCG/2 ML VIAL ONE ×2 (16:29→16:56)
[2019-04-15] MEDS ORDERED: BIVALIRUDIN 250 MG VIAL IV ONE (16:50)
[2019-04-15] MEDS ORDERED: HEPARIN/NACL 0.9% 2 UNITS/ML 500 ML IV ONE (16:59)
[2019-04-15] MEDS ORDERED: CLOPIDOGREL 300 MG TABLET ONE (17:08)
[2019-04-15] MEDS ORDERED: SODIUM CHLORIDE 0.9% 1,000 ML IV SCH (18:00)
[2019-04-15] MEDS ORDERED: ALUMINUM/MAGNES/SIMETH MAX STR 30 ML UDCUP PO PRN (18:27)
[2019-04-15] MEDS: METOPROLOL TARTRATE 50 MG TABLET PO SCH (20:24)
[2019-04-15] MEDS: sitaGLIPtin 100 MG TABLET PO SCH (20:25)
[2019-04-16] MEDS: LEVOTHYROXINE 100 MCG TABLET PO SCH (05:32)
[2019-04-16 06:13] LABS: Basophils % 0.4 % (0.0-0.8); Eosinophils # 0.1 10*3/uL (0.0-0.87); Eosinophils % 0.7 % (0.00-10.9); Hematocrit 40.7 VOL% (42.0-52.0); Hemoglobin 13.1 GM/DL (14.0-18.0); Immature Granulocytes % 0.7 %; Immature Granulocytes Absolute 0.06 #; Mean Corpuscular HGB Conc 32.2 GM/DL (32-36); Mean Corpuscular Volume 95.3 FL (87-102); Mean Platelet Volume 12.9 FL (9.6-12.0); Monocytes % 8.8 % (1.7-12.7); Neutrophils % 78.4 % (38.7-73.9); Platelet Count 112 T/CUMM (130-400); Red Blood Count 4.27 MC/CUMM (3.8-5.5); Red Cell Distribution Width 13.9 % (9.3-17.3); White Blood Count 8.9 T/CUMM (4-12)
[2019-04-16 06:37] LABS: Calcium 8.6 MG/DL (8.5-10.1); Osmolality,Calculated 282.7 MOS/KG (273-304)
[2019-04-16] MEDS: INSULIN LISPRO 100 UNIT/ML SUBCUT SCH ×2 (07:52→13:40)
[2019-04-16] MEDS: ASCORBIC ACID 500 MG TABLET PO SCH (08:33)
[2019-04-16] MEDS: POTASSIUM CHLORIDE 20 MEQ TABLET PO SCH (08:34)
[2019-04-16] MEDS: ASPIRIN CHEW 81 MG TABLET PO SCH (08:34)
[2019-04-16] MEDS: TERAZOSIN 10 MG CAPSULE PO SCH (08:35)
[2019-04-16] MEDS: OLMESARTAN 20 MG TABLET PO SCH (08:35)
[2019-04-16] MEDS: PANTOPRAZOLE 40 MG TABLET PO SCH (08:35)
[2019-04-16] MEDS: METOPROLOL TARTRATE 50 MG TABLET PO SCH ×3 (08:35→09:37)
[2019-04-16] MEDS: SPIRONOLACTONE 25 MG TABLET PO SCH (08:35)
[2019-04-16] MEDS: CYANOCOBALAMIN 500 MCG TABLET PO SCH (08:35)
[2019-04-16] MEDS: FINASTERIDE 5 MG TABLET PO SCH (08:35)
[2019-04-16] MEDS: FUROSEMIDE 40 MG TABLET PO SCH (08:35)
[2019-04-16] MEDS: glyBURIDE 5 MG TABLET PO SCH (08:35)
[2019-04-16] MEDS ORDERED: APIXABAN 5 MG TABLET PO SCH (09:00)
[2019-04-16] MEDS ORDERED: APIXABAN 2.5 MG TABLET PO SCH (09:00)
[2019-04-16] MEDS ORDERED: CLOPIDOGREL 75 MG TABLET PO SCH (09:00)
[2019-04-16 13:45] VITALS: BP 130/69
[2019-04-16] MEDS ORDERED: ROSUVASTATIN 10 MG TABLET PO SCH (21:00)
== END 2019-04-16 15:18 | disposition home or self-care (01) | DRG 247 ==
LOC: N.EDINP 02:02 → N.ED 02:02 → N.TELEN 06:14 → SUATTDRO 13:32
PROVIDERS: ADMIT Family Medicine; ATTEND Internal Medicine
PROC: CLCCHCL (ICD-10-PCS; 2019-04-15 15:45)

== ENCOUNTER 2020-02-17 18:52 | Observation (INO) ==
[2020-02-17 21:07] LABS: Basophils # 0.1 10*3/uL (0.0-0.2); Basophils % 0.6 % (0.0-0.8); Eosinophils # 0.1 10*3/uL (0.0-0.87); Hematocrit 48.2 VOL% (42.0-52.0); Hemoglobin 15.9 GM/DL (14.0-18.0); Immature Granulocytes Absolute 0.11 #; Lymphocytes # 2.8 10*3/uL (1.4-4.0); Lymphocytes % 23.9 % (21.2-54.2); Mean Corpuscular Volume 93.8 FL (87-102); Mean Platelet Volume 12.3 FL (9.6-12.0); Monocytes % 9.5 % (1.7-12.7); Platelet Count 154 T/CUMM (130-400); Red Blood Count 5.14 MC/CUMM (3.8-5.5); Red Cell Distribution Width 13.2 % (9.3-17.3); White Blood Count 11.5 T/CUMM (4-12)
[2020-02-17 21:22] LABS: Albumin 3.9 G/DL (3.4-5.0); Bilirubin,Total 0.5 MG/DL (0.2-1.0); Calcium 9.2 MG/DL (8.5-10.1); Osmolality,Calculated 279.7 MOS/KG (273-304); Total Protein 7.4 G/DL (6.4-8.3)
[2020-02-17] MEDS ORDERED: DILTIAZEM 50 MG/10 ML VIAL IV STA (21:59)
[2020-02-17 22:40] LABS: PT Patient Result 10.9 SECS (9.8-11.9); Partial Thromboplastin Time 30.9 SECS (23.9-33.8)
[2020-02-18] MEDS ORDERED: MAGNESIUM SULF RIDER 2 GM in PREMIX 1 EACH IV PRN (02:51)
[2020-02-18] MEDS ORDERED: MAGNESIUM SULF RIDER 4 GM in PREMIX 1 EACH IV PRN (02:51)
[2020-02-18] MEDS ORDERED: ONDANSETRON 4 MG/2 ML VIAL IV PRN (02:51)
[2020-02-18] MEDS ORDERED: APIXABAN 2.5 MG TABLET PO SCH (09:00)
[2020-02-18] MEDS ORDERED: AMIODARONE INJ 150 MG in DEXTROSE 5% 100 ML IV ONE (09:07)
[2020-02-18] MEDS ORDERED: AMIODARONE INJ 450 MG in DEXTROSE 5% 241 ML IV SCH (09:30)
[2020-02-18 09:53] LABS: Osmolality,Calculated 283.5 MOS/KG (273-304)
[2020-02-18] MEDS ORDERED: APIXABAN 5 MG TABLET ONE (09:53)
[2020-02-18] MEDS ORDERED: AMIODARONE 450 MG/9 ML VIAL IV ONE (09:54)
[2020-02-18] MEDS ORDERED: ASPIRIN CHEW 81 MG TABLET PO ONE (09:54)
[2020-02-18] MEDS ORDERED: METOPROLOL TARTRATE 50 MG TABLET ONE (09:54)
[2020-02-18] MEDS ORDERED: PANTOPRAZOLE 40 MG TABLET PO ONE (09:54)
[2020-02-18] MEDS: ASCORBIC ACID 500 MG TABLET PO SCH ×2 (10:52→20:53)
[2020-02-18] MEDS: ASPIRIN CHEW 81 MG TABLET PO SCH (10:52)
[2020-02-18] MEDS: PANTOPRAZOLE 40 MG TABLET PO SCH (10:52)
[2020-02-18] MEDS: SPIRONOLACTONE 25 MG TABLET PO SCH (10:52)
[2020-02-18] MEDS: METOPROLOL TARTRATE 50 MG TABLET PO SCH ×2 (10:52→20:52)
[2020-02-18] MEDS ORDERED: DEXTROSE 50% 25 GM/50 ML VIAL IV PRN (11:03)
[2020-02-18] MEDS ORDERED: GLUCAGON 1 MG VIAL IM PRN (11:03)
[2020-02-18] MEDS ORDERED: NITROGLYCERIN SL 0.4 MG TABLET SL PRN (11:05)
[2020-02-18] MEDS ORDERED: INSULIN REGULAR 100 UNIT/ML ONE (13:59)
[2020-02-18] MEDS: INSULIN REGULAR 100 UNIT/ML SUBCUT SCH ×3 (14:00→20:54)
[2020-02-18] MEDS: AMIODARONE INJ 450 MG in DEXTROSE 5% 241 ML IV SCH (19:58)
[2020-02-18] MEDS: APIXABAN 5 MG TABLET PO SCH (20:52)
[2020-02-18] MEDS: sitaGLIPtin 100 MG TABLET PO SCH (20:52)
[2020-02-18] MEDS ORDERED: ROSUVASTATIN 10 MG TABLET PO SCH (21:00)
[2020-02-19] MEDS: AMIODARONE INJ 450 MG in DEXTROSE 5% 241 ML IV SCH (01:28)
[2020-02-19 04:07] LABS: Basophils # 0.1 10*3/uL (0.0-0.2); Basophils % 0.5 % (0.0-0.8); Eosinophils # 0.1 10*3/uL (0.0-0.87); Hematocrit 48.8 VOL% (42.0-52.0); Hemoglobin 16.2 GM/DL (14.0-18.0); Immature Granulocytes % 1.1 %; Immature Granulocytes Absolute 0.12 #; Lymphocytes # 1.8 10*3/uL (1.4-4.0); Lymphocytes % 16.1 % (21.2-54.2); Mean Corpuscular HGB Conc 33.2 GM/DL (32-36); Mean Corpuscular Volume 92.4 FL (87-102); Mean Platelet Volume 12.1 FL (9.6-12.0); Monocytes % 10.1 % (1.7-12.7); Neutrophils % 71.2 % (38.7-73.9); Platelet Count 133 T/CUMM (130-400); Red Blood Count 5.28 MC/CUMM (3.8-5.5); Red Cell Distribution Width 13.2 % (9.3-17.3)
[2020-02-19] MEDS ORDERED: LEVOTHYROXINE 100 MCG TABLET PO SCH (06:30)
[2020-02-19] MEDS ORDERED: glyBURIDE 5 MG TABLET PO SCH (09:00)
[2020-02-19] MEDS: INSULIN REGULAR 100 UNIT/ML SUBCUT SCH ×4 (10:14→23:00)
[2020-02-19] MEDS: SPIRONOLACTONE 25 MG TABLET PO SCH (10:15)
[2020-02-19] MEDS: FUROSEMIDE 40 MG TABLET PO SCH (10:15)
[2020-02-19] MEDS: OLMESARTAN 20 MG TABLET PO SCH (10:15)
[2020-02-19] MEDS: CLOPIDOGREL 75 MG TABLET PO SCH (10:16)
[2020-02-19] MEDS: ASCORBIC ACID 500 MG TABLET PO SCH ×2 (10:16→22:07)
[2020-02-19] MEDS: FINASTERIDE 5 MG TABLET PO SCH (10:16)
[2020-02-19] MEDS: METOPROLOL TARTRATE 50 MG TABLET PO SCH ×2 (10:16→22:07)
[2020-02-19] MEDS: POTASSIUM CHLORIDE 20 MEQ TABLET PO SCH (10:16)
[2020-02-19] MEDS: APIXABAN 5 MG TABLET PO SCH ×2 (10:16→22:07)
[2020-02-19] MEDS: PANTOPRAZOLE 40 MG TABLET PO SCH ×2 (10:17)
[2020-02-19] MEDS: ASPIRIN CHEW 81 MG TABLET PO SCH (10:17)
[2020-02-19] MEDS: CYANOCOBALAMIN 500 MCG TABLET PO SCH (10:17)
[2020-02-19] MEDS: TERAZOSIN 10 MG CAPSULE PO SCH (10:17)
[2020-02-19] MEDS: DRONEDARONE 400 MG TABLET PO SCH (17:40)
[2020-02-19] MEDS ORDERED: NON-FORMULARY MEDICATION (Icosapent Ethyl [Vascepa] 2 GM) PO SCH (21:00)
[2020-02-19] MEDS ORDERED: AMIODARONE 200 MG TABLET PO SCH (21:00)
[2020-02-19] MEDS ORDERED: SIMVASTATIN 20 MG TABLET PO SCH (21:00)
[2020-02-19] MEDS ORDERED: ROSUVASTATIN 20 MG TABLET PO SCH (21:00)
[2020-02-19] MEDS: sitaGLIPtin 100 MG TABLET PO SCH (22:06)
[2020-02-20 04:18] LABS: Basophils # 0.1 10*3/uL (0.0-0.2); Basophils % 0.7 % (0.0-0.8); Eosinophils # 0.1 10*3/uL (0.0-0.87); Eosinophils % 1.2 % (0.00-10.9); Hematocrit 43.3 VOL% (42.0-52.0); Hemoglobin 14.4 GM/DL (14.0-18.0); Immature Granulocytes % 1.2 %; Immature Granulocytes Absolute 0.13 #; Lymphocytes # 1.5 10*3/uL (1.4-4.0); Lymphocytes % 14.4 % (21.2-54.2); Mean Corpuscular HGB Conc 33.3 GM/DL (32-36); Mean Corpuscular Volume 93.9 FL (87-102); Mean Platelet Volume 11.2 FL (9.6-12.0); Neutrophils % 71.5 % (38.7-73.9); Platelet Count 119 T/CUMM (130-400); Red Blood Count 4.61 MC/CUMM (3.8-5.5); Red Cell Distribution Width 13.2 % (9.3-17.3); White Blood Count 10.6 T/CUMM (4-12)
[2020-02-20 04:35] LABS: Calcium 8.4 MG/DL (8.5-10.1); Osmolality,Calculated 284.5 MOS/KG (273-304)
[2020-02-20 04:37] LABS: Platelet Estimate Decreased
[2020-02-20] MEDS ORDERED: LEVOTHYROXINE 50 MCG TABLET PO SCH (06:30)
[2020-02-20] MEDS ORDERED: glipiZIDE 5 MG TABLET PO SCH (07:30)
[2020-02-20 08:03] VITALS: BP 163/97
[2020-02-20] MEDS ORDERED: glipiZIDE 10 MG TABLET PO SCH (09:00)
[2020-02-20] MEDS ORDERED: SPIRONOLACTONE 25 MG TABLET PO SCH ×2 (09:00)
[2020-02-20] MEDS: ASPIRIN CHEW 81 MG TABLET PO SCH (09:30)
[2020-02-20] MEDS: DRONEDARONE 400 MG TABLET PO SCH (09:30)
[2020-02-20] MEDS: TERAZOSIN 10 MG CAPSULE PO SCH (09:30)
[2020-02-20] MEDS: METOPROLOL TARTRATE 50 MG TABLET PO SCH ×2 (09:30→09:36)
[2020-02-20] MEDS: PANTOPRAZOLE 40 MG TABLET PO SCH (09:31)
[2020-02-20] MEDS: APIXABAN 5 MG TABLET PO SCH (09:31)
[2020-02-20] MEDS: CYANOCOBALAMIN 500 MCG TABLET PO SCH (09:31)
[2020-02-20] MEDS: FUROSEMIDE 40 MG TABLET PO SCH (09:31)
[2020-02-20] MEDS: POTASSIUM CHLORIDE 20 MEQ TABLET PO SCH (09:31)
[2020-02-20] MEDS: OLMESARTAN 20 MG TABLET PO SCH (09:31)
[2020-02-20] MEDS: ASCORBIC ACID 500 MG TABLET PO SCH (09:31)
[2020-02-20] MEDS: CLOPIDOGREL 75 MG TABLET PO SCH (09:32)
[2020-02-20] MEDS: INSULIN REGULAR 100 UNIT/ML SUBCUT SCH (09:32)
[2020-02-20] MEDS: FINASTERIDE 5 MG TABLET PO SCH (09:32)
== END 2020-02-20 11:08 | disposition home or self-care (01) ==
LOC: N.EDINP 18:52 → N.ED 18:52 → N.TELEN 02-18 13:39
PROVIDERS: ADMIT Internal Medicine Cardiovascular Disease; ATTEND Internal Medicine Cardiovascular Disease

== ENCOUNTER 2020-04-14 00:13 | Observation (INO) ==
[2020-04-14 01:14] LABS: Basophils # 0.1 10*3/uL (0.0-0.2); Basophils % 0.8 % (0.0-0.8); Eosinophils # 0.1 10*3/uL (0.0-0.87); Hematocrit 46.6 VOL% (42.0-52.0); Immature Granulocytes Absolute 0.12 #; Lymphocytes # 3.1 10*3/uL (1.4-4.0); Lymphocytes % 24.6 % (21.2-54.2); Mean Corpuscular HGB Conc 34.3 GM/DL (32-36); Mean Corpuscular Volume 92.1 FL (87-102); Mean Platelet Volume 11.9 FL (9.6-12.0); Monocytes % 9.6 % (1.7-12.7); Platelet Count 136 T/CUMM (130-400); Red Blood Count 5.06 MC/CUMM (3.8-5.5); Red Cell Distribution Width 13.3 % (9.3-17.3); White Blood Count 12.5 T/CUMM (4-12)
[2020-04-14 01:34] LABS: Albumin 3.8 G/DL (3.4-5.0); Bilirubin,Total 0.5 MG/DL (0.2-1.0); Calcium 8.5 MG/DL (8.5-10.1); Osmolality,Calculated 290.7 MOS/KG (273-304); Total Protein 7.2 G/DL (6.4-8.3)
[2020-04-14 01:41] LABS: Thyroid Stimulating Hormone 3.77 uIU/ml (0.358-3.74)
[2020-04-14] MEDS ORDERED: SODIUM CHLORIDE 0.9% 1,000 ML IV STA (01:41)
[2020-04-14] MEDS ORDERED: DIGOXIN 0.5 MG/2 ML AMP IV STA (01:42)
[2020-04-14 01:46] LABS: PT Patient Result 11.1 SECS (9.8-11.9)
[2020-04-14] MEDS ORDERED: ACETAMINOPHEN 325 MG TABLET PO PRN (02:01)
[2020-04-14] MEDS ORDERED: GLUCAGON 1 MG VIAL IM PRN (02:01)
[2020-04-14] MEDS ORDERED: ONDANSETRON 4 MG/2 ML VIAL IV PRN (02:01)
[2020-04-14] MEDS ORDERED: DEXTROSE 50% 25 GM/50 ML VIAL IV PRN (02:01)
[2020-04-14] MEDS ORDERED: DEXTROSE 50% 25 GM/50 ML SYRINGE IV PRN (02:17)
[2020-04-14] MEDS: INSULIN REGULAR 100 UNIT/ML SUBCUT SCH ×3 (07:57→17:04)
[2020-04-14] MEDS ORDERED: PANTOPRAZOLE 40 MG TABLET PO SCH (09:00)
[2020-04-14 09:13] LABS: Basophils # 0.1 10*3/uL (0.0-0.2); Basophils % 0.6 % (0.0-0.8); Eosinophils # 0.1 10*3/uL (0.0-0.87); Eosinophils % 0.9 % (0.00-10.9); Hematocrit 44.6 VOL% (42.0-52.0); Hemoglobin 15.1 GM/DL (14.0-18.0); Immature Granulocytes % 0.7 %; Immature Granulocytes Absolute 0.07 #; Lymphocytes # 2.8 10*3/uL (1.4-4.0); Mean Corpuscular HGB Conc 33.9 GM/DL (32-36); Mean Corpuscular Volume 91.4 FL (87-102); Mean Platelet Volume 11.5 FL (9.6-12.0); Monocytes % 8.9 % (1.7-12.7); Neutrophils % 61.9 % (38.7-73.9); Platelet Count 116 T/CUMM (130-400); Red Blood Count 4.88 MC/CUMM (3.8-5.5); Red Cell Distribution Width 13.3 % (9.3-17.3); White Blood Count 10.3 T/CUMM (4-12)
[2020-04-14 09:34] LABS: Calcium 8.3 MG/DL (8.5-10.1); Osmolality,Calculated 280.8 MOS/KG (273-304)
[2020-04-14 09:53] LABS: Platelet Estimate Decreased
[2020-04-14] MEDS ORDERED: NITROGLYCERIN SL 0.4 MG TABLET SL PRN (11:32)
[2020-04-14] MEDS ORDERED: busPIRone 5 MG TABLET PO PRN (11:32)
[2020-04-14 16:42] VITALS: BP 138/76
[2020-04-14] MEDS ORDERED: DRONEDARONE 400 MG TABLET PO SCH (17:00)
[2020-04-14] MEDS ORDERED: ASCORBIC ACID 500 MG TABLET PO SCH (21:00)
[2020-04-14] MEDS ORDERED: APIXABAN 5 MG TABLET PO SCH (21:00)
[2020-04-15] MEDS ORDERED: LEVOTHYROXINE 75 MCG TABLET PO SCH (07:00)
[2020-04-15] MEDS ORDERED: glipiZIDE 5 MG TABLET PO SCH (07:30)
[2020-04-15] MEDS ORDERED: TERAZOSIN 10 MG CAPSULE PO SCH (09:00)
[2020-04-15] MEDS ORDERED: sitaGLIPtin 100 MG TABLET PO SCH (09:00)
[2020-04-15] MEDS ORDERED: METOPROLOL SUCCINATE XL 100 MG TABLET PO SCH (09:00)
[2020-04-15] MEDS ORDERED: OLMESARTAN 20 MG TABLET PO SCH (09:00)
[2020-04-15] MEDS ORDERED: SPIRONOLACTONE 25 MG TABLET PO SCH (09:00)
[2020-04-15] MEDS ORDERED: SIMVASTATIN 20 MG TABLET PO SCH (09:00)
[2020-04-15] MEDS ORDERED: FINASTERIDE 5 MG TABLET PO SCH (09:00)
== END 2020-04-14 19:31 | disposition hospice, home (50) ==
LOC: N.ED 00:13 → N.EDINP 02:01 → INTOOBSV 02:01 → N.TELEN 02:51
PROVIDERS: ADMIT Family Medicine; ATTEND Family Medicine

== ENCOUNTER 2021-01-01 05:52 | Observation (INO) ==
[2021-01-01 06:19] LABS: Basophils % 0.3 % (0.0-0.8); Eosinophils # 0.1 10*3/uL (0.0-0.87); Eosinophils % 0.9 % (0.00-10.9); Hematocrit 45.2 VOL% (42.0-52.0); Hemoglobin 14.8 GM/DL (14.0-18.0); Immature Granulocytes Absolute 0.07 #; Lymphocytes # 1.8 10*3/uL (1.4-4.0); Mean Corpuscular HGB Conc 32.7 GM/DL (32-36); Mean Corpuscular Volume 90.9 FL (87-102); Mean Platelet Volume 11.7 FL (9.6-12.0); Neutrophils % 53.8 % (38.7-73.9); Platelet Count 122 T/CUMM (130-400); Red Blood Count 4.97 MC/CUMM (3.8-5.5); Red Cell Distribution Width 13.8 % (9.3-17.3); White Blood Count 6.7 T/CUMM (4-12)
[2021-01-01] MEDS ORDERED: DILTIAZEM 50 MG/10 ML VIAL IV STA (06:24)
[2021-01-01 06:32] LABS: PT Patient Result 11.4 SECS (10.5-12.0); Partial Thromboplastin Time 32.7 SECS (23.9-33.8)
[2021-01-01 06:45] LABS: Lymphocytes 19 % (20-55); Platelet Estimate Normal; Segmented Neutrophils 66 % (50-85); Total Cells Counted 100
[2021-01-01] MEDS: DILTIAZEM INJ 100 MG in SODIUM CHLORIDE 0.9% 100 ML IV SCH ×2 (06:45→19:00)
[2021-01-01 06:50] LABS: Albumin 3.3 G/DL (3.4-5.0); Bilirubin,Total 0.5 MG/DL (0.20-1.00); Calcium 8.2 MG/DL (8.5-10.1); Osmolality,Calculated 291.8 MOS/KG (273-304); Potassium 3.8 MMOL/L (3.5-5.1); Total Protein 6.6 G/DL (6.4-8.2)
[2021-01-01] MEDS ORDERED: GLUCAGON 1 MG VIAL IM PRN ×2 (09:03→13:02)
[2021-01-01] MEDS ORDERED: ACETAMINOPHEN 325 MG TABLET PO PRN (09:03)
[2021-01-01] MEDS ORDERED: ONDANSETRON 4 MG/2 ML VIAL IV PRN (09:03)
[2021-01-01] MEDS ORDERED: DEXTROSE 50% 25 GM/50 ML VIAL IV PRN ×2 (09:03→13:02)
[2021-01-01] MEDS ORDERED: MAGNESIUM SULF RIDER 2 GM/50 ML PREMIX IV ONE (09:08)
[2021-01-01] MEDS: SODIUM CHLORIDE 0.9% 1,000 ML IV SCH ×2 (09:49→18:59)
[2021-01-01] MEDS ORDERED: busPIRone 10 MG TABLET PO PRN (11:27)
[2021-01-01] MEDS: NICOTINE 14 MG/24 HR PATCH TRANSDERM SCH (12:18)
[2021-01-01] MEDS: INSULIN LISPRO 100 UNIT/ML SUBCUT SCH ×3 (12:18→21:30)
[2021-01-01] MEDS ORDERED: DRONEDARONE 400 MG TABLET PO SCH (17:00)
[2021-01-01] MEDS ORDERED: SIMVASTATIN 20 MG TABLET PO SCH (21:00)
[2021-01-01] MEDS: METOPROLOL SUCCINATE XL 100 MG TABLET PO SCH (21:30)
[2021-01-01] MEDS: TERAZOSIN 10 MG CAPSULE PO SCH (21:30)
[2021-01-01] MEDS: GABAPENTIN 100 MG CAPSULE PO SCH (21:30)
[2021-01-01] MEDS: APIXABAN 5 MG TABLET PO SCH (21:30)
[2021-01-02] MEDS: SODIUM CHLORIDE 0.9% 1,000 ML IV SCH ×4 (04:00→10:06)
[2021-01-02] MEDS: LEVOTHYROXINE 75 MCG TABLET PO SCH (05:50)
[2021-01-02 06:25] LABS: Basophils % 0.6 % (0.0-0.8); Eosinophils # 0.2 10*3/uL (0.0-0.87); Eosinophils % 2.6 % (0.00-10.9); Hematocrit 41.1 VOL% (42.0-52.0); Hemoglobin 13.6 GM/DL (14.0-18.0); Immature Granulocytes % 1.2 %; Immature Granulocytes Absolute 0.08 #; Lymphocytes # 1.8 10*3/uL (1.4-4.0); Lymphocytes % 27.6 % (21.2-54.2); Mean Corpuscular HGB Conc 33.1 GM/DL (32-36); Mean Corpuscular Volume 90.9 FL (87-102); Mean Platelet Volume 11.9 FL (9.6-12.0); Monocytes % 14.9 % (1.7-12.7); Neutrophils % 53.1 % (38.7-73.9); Platelet Count 102 T/CUMM (130-400); Red Blood Count 4.52 MC/CUMM (3.8-5.5); Red Cell Distribution Width 13.6 % (9.3-17.3); White Blood Count 6.4 T/CUMM (4-12)
[2021-01-02 06:36] LABS: Calcium 7.7 MG/DL (8.5-10.1); Osmolality,Calculated 290.3 MOS/KG (273-304)
[2021-01-02 06:45] LABS: Hypochromasia Slight; Microcytosis Slight; Platelet Estimate Decreased
[2021-01-02] MEDS ORDERED: METOPROLOL SUCCINATE XL 50 MG TABLET PO SCH (09:00)
[2021-01-02] MEDS: NICOTINE 14 MG/24 HR PATCH TRANSDERM SCH (09:17)
[2021-01-02] MEDS: INSULIN LISPRO 100 UNIT/ML SUBCUT SCH ×4 (09:18→21:07)
[2021-01-02] MEDS: ESCITALOPRAM 10 MG TABLET PO SCH (09:19)
[2021-01-02] MEDS: APIXABAN 5 MG TABLET PO SCH ×2 (09:19→21:06)
[2021-01-02] MEDS: METOPROLOL SUCCINATE XL 100 MG TABLET PO SCH ×2 (09:19→21:07)
[2021-01-02] MEDS: GABAPENTIN 100 MG CAPSULE PO SCH ×2 (09:19→21:06)
[2021-01-02] MEDS: PANTOPRAZOLE 40 MG TABLET PO SCH (09:19)
[2021-01-02] MEDS: OLMESARTAN 20 MG TABLET PO SCH (09:19)
[2021-01-02] MEDS: SPIRONOLACTONE 25 MG TABLET PO SCH (09:21)
[2021-01-02] MEDS: CYANOCOBALAMIN 500 MCG TABLET PO SCH (09:22)
[2021-01-02] MEDS: DILTIAZEM 60 MG TABLET PO SCH ×3 (12:47→21:07)
[2021-01-02] MEDS: TERAZOSIN 10 MG CAPSULE PO SCH (21:06)
[2021-01-02] MEDS: ROSUVASTATIN 20 MG TABLET PO SCH (21:07)
[2021-01-03 05:55] LABS: Basophils # 0.1 10*3/uL (0.0-0.2); Basophils % 0.9 % (0.0-0.8); Eosinophils # 0.2 10*3/uL (0.0-0.87); Eosinophils % 2.4 % (0.00-10.9); Hematocrit 41.6 VOL% (42.0-52.0); Hemoglobin 13.7 GM/DL (14.0-18.0); Immature Granulocytes % 1.6 %; Immature Granulocytes Absolute 0.11 #; Lymphocytes # 1.8 10*3/uL (1.4-4.0); Lymphocytes % 25.3 % (21.2-54.2); Mean Corpuscular HGB Conc 32.9 GM/DL (32-36); Mean Corpuscular Volume 91.4 FL (87-102); Mean Platelet Volume 12.1 FL (9.6-12.0); Monocytes % 11.7 % (1.7-12.7); Neutrophils % 58.1 % (38.7-73.9); Platelet Count 110 T/CUMM (130-400); Red Blood Count 4.55 MC/CUMM (3.8-5.5); Red Cell Distribution Width 13.3 % (9.3-17.3)
[2021-01-03] MEDS: LEVOTHYROXINE 75 MCG TABLET PO SCH (06:32)
[2021-01-03 06:40] LABS: Calcium 7.9 MG/DL (8.5-10.1); Osmolality,Calculated 286.3 MOS/KG (273-304); Potassium 3.9 MMOL/L (3.5-5.1)
[2021-01-03] MEDS: DILTIAZEM 60 MG TABLET PO SCH ×4 (08:34→21:15)
[2021-01-03] MEDS: OLMESARTAN 20 MG TABLET PO SCH (08:34)
[2021-01-03] MEDS: SODIUM CHLORIDE 0.9% 1,000 ML IV SCH ×2 (08:34→21:30)
[2021-01-03] MEDS: GABAPENTIN 100 MG CAPSULE PO SCH ×2 (08:35→21:44)
[2021-01-03] MEDS: SPIRONOLACTONE 25 MG TABLET PO SCH (08:35)
[2021-01-03] MEDS: METOPROLOL SUCCINATE XL 100 MG TABLET PO SCH ×2 (08:35→22:55)
[2021-01-03] MEDS: ESCITALOPRAM 10 MG TABLET PO SCH (08:36)
[2021-01-03] MEDS: APIXABAN 5 MG TABLET PO SCH ×2 (08:37→21:45)
[2021-01-03] MEDS: PANTOPRAZOLE 40 MG TABLET PO SCH (08:37)
[2021-01-03] MEDS: INSULIN LISPRO 100 UNIT/ML SUBCUT SCH ×4 (08:38→21:45)
[2021-01-03] MEDS ORDERED: FUROSEMIDE 20 MG TABLET PO SCH (09:00)
[2021-01-03] MEDS ORDERED: POTASSIUM CHLORIDE 20 MEQ TABLET PO ONE (09:32)
[2021-01-03] MEDS ORDERED: MAGNESIUM SULF RIDER 2 GM/50 ML PREMIX IV ONE (09:32)
[2021-01-03] MEDS: NICOTINE 14 MG/24 HR PATCH TRANSDERM SCH (09:55)
[2021-01-03] MEDS: ASCORBIC ACID 500 MG TABLET PO SCH ×2 (10:05→21:45)
[2021-01-03] MEDS: CYANOCOBALAMIN 500 MCG TABLET PO SCH ×2 (10:05→10:28)
[2021-01-03] MEDS ORDERED: LIDOCAINE 1%/EPI INJ 20 ML VIAL ONE (13:03)
[2021-01-03] MEDS ORDERED: TISSUE ADHESIVE 1 EACH APPLICATOR TOP ONE ×2 (13:03→14:31)
[2021-01-03] MEDS ORDERED: LIDOCAINE 2% 5 ML VIAL ONE (13:11)
[2021-01-03] MEDS ORDERED: propofoL 200 MG/20 ML VIAL IV ONE (13:11)
[2021-01-03 13:46] LABS: Calcium 8.2 MG/DL (8.5-10.1); Osmolality,Calculated 277.7 MOS/KG (273-304); Potassium 4.1 MMOL/L (3.5-5.1)
[2021-01-03] MEDS ORDERED: LIDOCAINE 1%/EPI INJ 20 ML VIAL INFILTRAT ONE (14:30)
[2021-01-03] MEDS: TERAZOSIN 10 MG CAPSULE PO SCH (21:44)
[2021-01-03] MEDS: ROSUVASTATIN 20 MG TABLET PO SCH (21:44)
[2021-01-04 04:48] LABS: Basophils % 0.6 % (0.0-0.8); Eosinophils # 0.2 10*3/uL (0.0-0.87); Eosinophils % 2.4 % (0.00-10.9); Hematocrit 40.1 VOL% (42.0-52.0); Immature Granulocytes % 2.5 %; Immature Granulocytes Absolute 0.18 #; Lymphocytes # 1.6 10*3/uL (1.4-4.0); Lymphocytes % 22.8 % (21.2-54.2); Mean Corpuscular HGB Conc 32.4 GM/DL (32-36); Mean Corpuscular Volume 91.8 FL (87-102); Mean Platelet Volume 11.7 FL (9.6-12.0); Monocytes % 11.2 % (1.7-12.7); Neutrophils % 60.5 % (38.7-73.9); Platelet Count 112 T/CUMM (130-400); Red Blood Count 4.37 MC/CUMM (3.8-5.5); Red Cell Distribution Width 13.2 % (9.3-17.3); White Blood Count 7.1 T/CUMM (4-12)
[2021-01-04 05:01] LABS: Calcium 7.9 MG/DL (8.5-10.1); Osmolality,Calculated 282.7 MOS/KG (273-304); Potassium 4.2 MMOL/L (3.5-5.1)
[2021-01-04 05:31] LABS: Band Neutrophils 2 % (0-10); Eosinophils 2 % (0-10); Lymphocytes 25 % (20-55); Segmented Neutrophils 62 % (50-85); Total Cells Counted 100
[2021-01-04 05:32] LABS: Anisocytosis 1+; Macrocytosis Slight; Platelet Estimate Adequate; Smudge Cells Few
[2021-01-04] MEDS: LEVOTHYROXINE 75 MCG TABLET PO SCH (06:06)
[2021-01-04] MEDS: INSULIN LISPRO 100 UNIT/ML SUBCUT SCH (08:10)
[2021-01-04 08:11] VITALS: BP 136/79
[2021-01-04] MEDS: ESCITALOPRAM 10 MG TABLET PO SCH (08:13)
[2021-01-04] MEDS: OLMESARTAN 20 MG TABLET PO SCH (08:13)
[2021-01-04] MEDS: GABAPENTIN 100 MG CAPSULE PO SCH (08:13)
[2021-01-04] MEDS: APIXABAN 5 MG TABLET PO SCH (08:13)
[2021-01-04] MEDS: NICOTINE 14 MG/24 HR PATCH TRANSDERM SCH (08:13)
[2021-01-04] MEDS: CYANOCOBALAMIN 500 MCG TABLET PO SCH (08:14)
[2021-01-04] MEDS: PANTOPRAZOLE 40 MG TABLET PO SCH (08:14)
[2021-01-04] MEDS: SPIRONOLACTONE 25 MG TABLET PO SCH (08:14)
[2021-01-04] MEDS: ASCORBIC ACID 500 MG TABLET PO SCH (08:15)
[2021-01-04] MEDS: DILTIAZEM 60 MG TABLET PO SCH (08:16)
[2021-01-04] MEDS: METOPROLOL SUCCINATE XL 100 MG TABLET PO SCH (08:17)
[2021-01-04] MEDS ORDERED: METOPROLOL SUCCINATE XL 25 MG TABLET PO SCH (09:00)
== END 2021-01-04 11:42 | disposition home or self-care (01) ==
LOC: N.ED 05:52 → N.EDINP 05:52 → SUATTDRO 09:03 → N.TELEN 11:08
PROVIDERS: ADMIT Internal Medicine; ATTEND Internal Medicine